=== PATIENT | female | born 1980 | race Caucasian/White ===

== ENCOUNTER 2018-11-19 05:58 | Inpatient (IN) | payer OTHER ==
[2018-11-17 14:41] VITALS: BMI 40.7
[2018-11-19] MEDS ORDERED: LACTATED RINGERS 1,000 ML IV SCH ×2 (06:30→09:30)
[2018-11-19] MEDS ORDERED: CITRIC ACID-SODIUM CITRATE 15 ML CUP PO ONE (06:30)
[2018-11-19 06:54] LABS: Basophils % (A) 0 %; Eosinophils # (A) 0.1 k/uL (0-0.7); Eosinophils % (A) 1 %; HGB 12.5 gm/dL (11.4-16.0); Lymphocytes # (A) 1.5 k/uL (1.0-4.8); Lymphocytes % (A) 17 %; MCH 31.6 pg (25.0-35.0); MCHC 34.7 g/dL (31.0-37.0); MCV 90.8 fL (80.0-100.0); Mean Platelet Volume 7.1; Monocytes # (A) 0.5 k/uL (0-1.0); Monocytes % (A) 6 %; Neutrophils # (A) 6.8 k/uL (1.3-7.7); Neutrophils % (A) 74 %; Platelet Count 180 k/uL (150-450); RBC 3.96 m/uL (3.80-5.40); RDW 13.1 % (11.5-15.5); WBC 9.2 k/uL (3.8-10.6)
[2018-11-19] MEDS ORDERED: KETOROLAC 30 MG/ML 1 ML VIAL ONE (08:05)
[2018-11-19] MEDS ORDERED: MIDAZOLAM 2 MG/2 ML VIAL ONE (08:05)
[2018-11-19] MEDS ORDERED: ePHEDrine SULFATE/0.9% NACL/PF 50 MG/5 ML SYRINGE IV ONE (08:05)
[2018-11-19] MEDS ORDERED: MORPHINE SULFATE (PF) 0.3 MG/0.3 ML SYR ONE (08:05)
[2018-11-19] MEDS ORDERED: ONDANSETRON 4 MG/2 ML VIAL ONE (08:05)
[2018-11-19] MEDS ORDERED: NALBUPHINE 10 MG/ML (1 ML AMP) ONE (08:05)
[2018-11-19] MEDS ORDERED: OXYTOCIN 10 UNIT/ML 1 ML VIAL ONE (08:05)
[2018-11-19] MEDS ORDERED: HYDROcodone/APAP 7.5-325MG 1 EACH TAB PO PRN (09:17)
[2018-11-19] MEDS ORDERED: ONDANSETRON 4 MG/2 ML VIAL IVP PRN (09:17)
[2018-11-19] MEDS ORDERED: METOCLOPRAMIDE 5 MG/ML 2 ML VIAL IVP PRN (09:17)
[2018-11-19] MEDS ORDERED: diphenhydrAMINE 50 MG/ML 1 ML VIAL IVP PRN ×2 (09:17)
[2018-11-19] MEDS ORDERED: SIMETHICONE 80 MG CHEWABLE PO PRN (09:17)
[2018-11-19] MEDS ORDERED: ACETAMINOPHEN TAB 325 MG TAB PO PRN (09:17)
[2018-11-19] MEDS ORDERED: diphenhydrAMINE 25 MG CAP PO PRN (09:17)
[2018-11-19] MEDS ORDERED: diphenhydrAMINE 50 MG CAP PO PRN (09:17)
[2018-11-19] MEDS ORDERED: LANOLIN CREAM 5 GM TUBE TOPICAL PRN (09:17)
[2018-11-19] MEDS ORDERED: ZOLPIDEM 5 MG TAB PO PRN (09:17)
[2018-11-19] MEDS ORDERED: NALOXONE 0.4 MG/ML 1 ML VIAL IV PRN ×2 (09:17→09:41)
--- NOTE | 2018-11-19 09:23 | P.HPOB ---
History of Present Illness H&P Date: 11/19/18 Chief Complaint: 39+ weeks, previous section, requesting repeat with tubal ligation The patient is a 38-year-old 2 para 1001 admitted at 39+ weeks as established by enedina Crawfordter. And confirmed a 9 week ultrasound. She is admitted for repeat low transverse section with intraoperative bilateral tubal occlusion with Filshie clips. She has signed consent to these effects in the office and understands all the risks and complications. Her has otherwise been essentially uncomplicated. She does fall into the category of advanced maternal age and declined trisomy testing. She also is known to be Rh- and received RhoGAM at 28 weeks. Group B strep status is negative. She is also known to have fairly significant fibroids in the fundal portion of the uterus. Obstetrical history: 2 para 1001 with 1 previous term section without compilations. Current statistics are listed in history present illness. EDC of 11/25/2018 was established by last menstrual period and confirmed by 9 week ultrasound. Laboratory workup demonstrates a blood type of B- with a negative antibody screen. Rubella status is immune. The remainder of the laboratory workup was within normal limits. Early Glucola was within normal limits while second trimester Glucola was elevated and followed by a normal three-hour glucose tolerance test. Group B strep status is negative. Gynecologic history: Unremarkable with no history of any infections to include STDs. Past Medical History Past Medical History: No Reported History Additional Past Medical History / Comment(s): Patient is approximately 8-9 cm uterine fibroid that appears to be pedunculated. History of Any Multi-Drug Resistant Organisms: None Reported Past Surgical History: Section, Orthopedic Surgery Additional Past Surgical History / Comment(s): arthroscopic left knee Past Anesthesia/Blood Transfusion Reactions: No Reported Reaction Past Psychological History: No Psychological Hx Reported Smoking Status: Never smoker Past Alcohol Use History: None Reported Past Drug Use History: None Reported - Past Family History Mother Family Medical History: No Reported History Medications and Allergies Home Medications Medication Instructions Recorded Confirmed Type Pnv,Calcium 72/Iron/Folic Acid 1 tab PO DAILY 12/25/14 11/19/18 History [ Plus Tablet] Allergies Allergy/AdvReac Type Severity Reaction Status Date / Time bandaid AdvReac red itchy Uncoded 11/19/18 06:28 skin Exam Vital Signs Temp Pulse Resp BP 11/19/18 06:26 96.4 F L 80 16 144/90 In general, this is a well-developed, well-nourished mildly obese white female in no acute distress. Her heart has a regular rhythm and rate without murmur. Her lungs are clear to auscultation bilaterally in all lee. Her abdomen is gravid, nondistended, has normal active bowel sounds, is soft, nontender, and without any palpable masses aside from uterine fundus. Her extremities are without any cyanosis, clubbing, or significant edema and are nontender to palpation bilaterally. Digital cervical examination is deferred. Results Result Diagrams: 11/19/18 06:37 Assessment and Plan (1) Family planning Current Visit: Yes Status: Acute Code(s): Z30.09 - ENCOUNTER FOR OT GENERAL CNSL AND ADVICE ON CONTRACEPTION SNOMED Code(s): 698180016 (2) Previous section Current Visit: Yes Status: Acute Code(s): Z98.891 - HISTORY OF UTERINE SCAR FROM PREVIOUS SURGERY SNOMED Code(s): 773691998 (3) Term Current Visit: Yes Status: Acute Code(s): Z34.90 - ENCNTR FOR SUPRVSN OF NORMAL , UNSP, UNSP TRIMESTER SNOMED Code(s): 85357045 Plan: The patient is admitted for repeat low transverse section with intraoperative bilateral tubal occlusion. She has signed consent to that effect in the office. She understands the risks and, occasions as well as the permanent nature of tubal ligation as well as the failure rate and risk for ectopic .
[2018-11-19] MEDS ORDERED: OXYTOCIN 20 UNITS/1000 ML NS 1,000 ML IV SCH (09:30)
--- NOTE | 2018-11-19 09:30 | P.OP ---
Date of Procedure: 11/19/18 Preoperative Diagnosis: #1. 39+ weeks, previous section #2. Undesired fertility #3. Fibroid uterus Postoperative Diagnosis: Same Procedure(s) Performed: #1. Repeat low transverse section #2. Bilateral intraoperative tubal occlusion with Filshie clips #3. Adhesiolysis Anesthesia: spinal Surgeon: Sawyer Jacques Personal Financial Representative #1: Tina Lees Estimated Blood Loss (ml): 600 IV fluids (ml): 1,800 Urine output (ml): 100 Pathology: none sent Condition: stable Disposition: floor Operative Findings: The patient was taken the operating room where she was delivered of a viable 7 lbs. 10 oz. baby boy with Apgars of 9 at 1 minute and 10 at 5 minutes delivered in the occiput anterior position. The placenta was delivered manually and intact, grossly normal with a grossly normal three-vessel cord. The uterus was noted to have multiple pedunculated and subserosal fibroids and uterine fundus and one in the low posterior fundal area, all at least 4 cm in size. There was also adhesive disease from the omentum to one of the fibroids on the fundus as well as into the adnexal region which was taken down intraoperatively. Otherwise, the tubes and ovaries were normal to inspection. There was a moderate amount of scarring in the midline at the level of the fascia and muscles. Description of Procedure: The patient was prepped and draped in usual fashion after spinal anesthesia was administered by the anesthesiologist. A Pfannenstiel incision was made through pre-existing scar and extended into the abdominal cavity with only minimal difficulty at the level of the fascia and muscles were there was moderate amount of scarring. The bladder peritoneum was elevated, incised, and reflected distally. A 270 incision was made in the transverse plane of the lower uterine segment to enter the uterus at which time light meconium-stained fluid was noted. Incision was extended in both directions using the bandage scissors. The head was delivered through the incision where the nose and mouth were thoroughly suctioned. Remainder of the was delivered onto the field where the cord was doubly clamped, cut, and the passed resuscitative measures weight and Apgars as noted above. cord blood was collected for evaluation for the necessity of RhoGAM. A segment of cord was doubly clamped, cut, and set aside should cord gases become necessary the placenta was delivered manually and intact as noted above. The uterus was exteriorized with some difficulty secondary to the bulkiness of the fibroids in the fundus. The margins of the incision were grasped with Talavera clamps after sweeping the interior cavity of any placental or membranous fragments with a laparotomy sponge. The incision was closed with a single running locking stitch of 0 chromic catgut proceeding from margin to margin. Any small points of bleeding were made hemostatic with the Bovie. There was noted to be a fairly dense omental adhesion to one of the pedunculated fibroids on the fundus which was tied with a free tie of 0 chromic catgut and then divided between the 2 free ties with no ongoing bleeding. There was another filmy adhesion which was taken down using the Bovie over the entire left adnexa. The posterior cul-de-sac was suctioned with a guard. After re-confirming that the patient wished tubal occlusion, the bilateral fallopian tubes were occluded with a Filshie clip approximately 2-3 cm from the cornu across the isthmus where there were firmly affixed. The uterus was replaced within the abdominal cavity. The gutters were swept of any remaining blood, fluid, or clot. Reexamination of the incision was carried out and any small points of bleeding made hemostatic with the Bovie. After hemostasis was assured, the parietal peritoneum was loosely reapproximated and layer of muscles examined and made hemostatic with the Bovie. The fascia was closed with 2 running stitches of 0 Vicryl proceeding from lateral margins to the midpoint. The subcutaneous tissues were irrigated, made hemostatic with the Bovie, and reapproximated with a running stitch of 30 plain catgut. The skin was reapproximated with a running subcuticular stitch of 4-0 Vicryl from margin to margin followed by half-inch Steri-Strips placed with Mastisol. Estimated blood loss for the case was approximate 600 mL. There are no complications. All sponge, instrument, and needle counts were correct. The patient tolerated the procedure well and proceeded to the recovery room in stable condition. Both mother and are resting comfortably in recovery.
[2018-11-19] MEDS ORDERED: KETOROLAC 30 MG/ML 1 ML VIAL IVP PRN (09:41)
[2018-11-19] MEDS ORDERED: NALBUPHINE 10 MG/ML (1 ML AMP) IV PRN (09:41)
[2018-11-19] MEDS ORDERED: MORPHINE SULFATE 2 MG/ML SYRINGE IVP PRN (09:41)
[2018-11-19] MEDS ORDERED: Rhogam IMMUNE GLOBULIN 1,500 UNIT/1 ML IM ONE (14:37)
[2018-11-19] MEDS: KETOROLAC 30 MG/ML 1 ML VIAL IVP PRN ×2 (16:00→23:13)
[2018-11-19] MEDS: SENNOSIDES-DOCUSATE SODIUM 1 EACH TAB PO SCH (23:15)
[2018-11-20] MEDS: HYDROcodone/APAP 5-325MG 1 EACH TAB PO PRN ×3 (05:45→20:59)
[2018-11-20 07:03] LABS: Basophils % (A) 0 %; Eosinophils # (A) 0.1 k/uL (0-0.7); Eosinophils % (A) 1 %; HGB 10.2 gm/dL (11.4-16.0); Lymphocytes # (A) 1.1 k/uL (1.0-4.8); Lymphocytes % (A) 8 %; MCH 30.7 pg (25.0-35.0); Mean Platelet Volume 8.4; Monocytes # (A) 0.6 k/uL (0-1.0); Monocytes % (A) 5 %; Neutrophils # (A) 11.1 k/uL (1.3-7.7); Neutrophils % (A) 85 %; Platelet Count 168 k/uL (150-450); RBC 3.33 m/uL (3.80-5.40); RDW 13.5 % (11.5-15.5); WBC 13.1 k/uL (3.8-10.6)
--- NOTE | 2018-11-20 07:18 | P.PN ---
Progress Note - Text Progress Note Date: 11/20/18 Patient without complaints. Ambulating without weakness or paresthesia. Pain and pruritis treated. Headache subsided after [place]. No urinary retention. VSS Spinal site clean and dry A/P POD #1 s/p with spinal duramorph - doing well
[2018-11-20] MEDS: SENNOSIDES-DOCUSATE SODIUM 1 EACH TAB PO SCH (08:14)
[2018-11-20] MEDS: KETOROLAC 30 MG/ML 1 ML VIAL IVP PRN (09:13)
--- NOTE | 2018-11-20 10:50 | P.PNOBGPC ---
Subjective - Subjective Patient reports: Reports appetite normal, Reports voiding normally, Reports pain well controlled, Reports ambulating normally : doing well, nursing well Objective - Vital Signs Latest vital signs: Vital Signs Temp Pulse Resp BP Pulse Ox 11/20/18 10:00 16 11/20/18 08:00 98.2 F 93 16 104/86 11/20/18 06:00 16 98 11/20/18 04:00 98.6 F 82 16 128/78 11/20/18 02:00 16 100 11/20/18 00:00 98.2 F 84 16 134/80 11/19/18 22:00 16 98 11/19/18 20:00 98.3 F 81 16 142/83 100 11/19/18 17:48 16 11/19/18 17:47 98 11/19/18 16:30 98.1 F 89 16 120/74 11/19/18 14:00 16 98 11/19/18 12:41 16 11/19/18 12:00 98.1 F 76 16 123/60 11/19/18 11:04 97.1 F L 75 16 133/68 Intake and Output 11/19/18 11/20/18 11/20/18 22:59 06:59 14:59 Output Total 1950 200 Balance -1950 -200 Output: Urine 1950 200 Uretheral ([place]) 650 Other: # Voids 400 1 - Exam Extremities: Present: normal, edema (Trace to 1+ bilateral lower extremity edema to mid vences.) Abdomen: Present: normal appearance, soft. Absent: distention, tenderness Incision: Present: normal, dry, intact Uterus: Present: normal, firm (The uterine fundus is tonic and nontender below the umbilicus.) - Labs Labs: Abnormal Lab Results - Last 24 Hours (Table) 11/20/18 Range/Units 06:39 WBC 13.1 H (3.8-10.6) k/uL RBC 3.33 L (3.80-5.40) m/uL Hgb 10.2 L (11.4-16.0) gm/dL Hct 31.0 L (34.0-46.0) % Neutrophils # 11.1 H (1.3-7.7) k/uL Assessment and Plan (1) Family planning Current Visit: Yes Status: Acute Code(s): Z30.09 - ENCOUNTER FOR OTH GENERAL CNSL AND ADVICE ON CONTRACEPTION SNOMED Code(s): 501060058 (2) Previous section Current Visit: Yes Status: Acute Code(s): Z98.891 - HISTORY OF UTERINE SCAR FROM PREVIOUS SURGERY SNOMED Code(s): 104589108 (3) Term Current Visit: Yes Status: Acute Code(s): Z34.90 - ENCNTR FOR SUPRVSN OF NORMAL , UNSP, UNSP TRIMESTER SNOMED Code(s): 45737831 (4) S/P section Current Visit: Yes Status: Acute Code(s): Z98.891 - HISTORY OF UTERINE SCAR FROM PREVIOUS SURGERY SNOMED Code(s): 192553132 Plan: Continue routine postoperative and care. Possible discharge home tomorrow though the patient may opted to stay an extra day for nursing help.
[2018-11-20] MEDS: IBUPROFEN 600 MG TAB PO PRN (18:30)
[2018-11-21] MEDS: IBUPROFEN 600 MG TAB PO PRN ×4 (00:27→19:08)
[2018-11-21] MEDS: SENNOSIDES-DOCUSATE SODIUM 1 EACH TAB PO SCH ×3 (01:28→22:36)
[2018-11-21] MEDS: HYDROcodone/APAP 5-325MG 1 EACH TAB PO PRN ×4 (04:17→22:36)
--- NOTE | 2018-11-21 11:02 | P.PNOBGPC ---
Subjective - Subjective Patient reports: Reports appetite normal, Reports voiding normally, Reports pain well controlled, Reports ambulating normally : doing well, nursing well Objective - Vital Signs Latest vital signs: Vital Signs Temp Pulse Resp BP Pulse Ox 11/21/18 08:00 98.0 F 78 16 153/92 11/21/18 00:00 98.1 F 89 16 139/73 11/20/18 22:00 16 100 11/20/18 20:00 99.1 F 96 16 148/90 100 11/20/18 16:00 99.0 F 99 16 120/80 98 11/20/18 12:00 16 Intake and Output 11/20/18 11/21/18 11/21/18 22:59 06:59 14:59 Other: # Voids 1 2 1 # Bowel Movements 1 - Exam Extremities: Present: normal Abdomen: Present: normal appearance, soft. Absent: distention, tenderness Incision: Present: normal, dry, intact Uterus: Present: normal, firm (The uterine fundus is tonic and minimally tender around the umbilicus.) Assessment and Plan (1) Family planning Current Visit: Yes Status: Acute Code(s): Z30.09 - ENCOUNTER FOR OT GENERAL CNSL AND ADVICE ON CONTRACEPTION SNOMED Code(s): 277449570 (2) Previous section Current Visit: Yes Status: Acute Code(s): Z98.891 - HISTORY OF UTERINE SCAR FROM PREVIOUS SURGERY SNOMED Code(s): 149255325 (3) Term Current Visit: Yes Status: Acute Code(s): Z34.90 - ENCNTR FOR SUPRVSN OF NORMAL , UNSP, UNSP TRIMESTER SNOMED Code(s): 96608139 (4) S/P section Current Visit: Yes Status: Acute Code(s): Z98.891 - HISTORY OF UTERINE SCAR FROM PREVIOUS SURGERY SNOMED Code(s): 729642662 Plan: Continue routine postoperative and care. The patient has elected to stay in the hospital 1 more day for additional assistance with nursing. I would anticipate discharge home tomorrow pending no complications. I continued to encourage her to amply in the halls routinely.
[2018-11-22] MEDS: IBUPROFEN 600 MG TAB PO PRN ×2 (01:21→07:50)
[2018-11-22] MEDS: HYDROcodone/APAP 5-325MG 1 EACH TAB PO PRN ×2 (04:40→11:00)
[2018-11-22] MEDS: SENNOSIDES-DOCUSATE SODIUM 1 EACH TAB PO SCH (07:50)
[2018-11-22 08:04] VITALS: BP 140/84; PULSE 85; RESP 17; TEMP 98
--- NOTE | 2018-11-22 09:25 | P.DS ---
Providers Date of admission: 11/19/18 05:58 Expected date of discharge: 11/22/18 Attending physician: Sawyer Jacques Primary care physician: Eliu Gomez - Discharge Diagnosis(es) (1) Family planning Current Visit: Yes Status: Acute (2) Previous section Current Visit: Yes Status: Acute (3) Term Current Visit: Yes Status: Acute (4) S/P section Current Visit: Yes Status: Acute Hospital Course: The patient is a 38-year-old 2 para 1001 admitted at 39+ weeks by good dating parameters. She is admitted for repeat low transverse section with intraoperative bilateral tubal occlusion with Filshie clips. Her was uncomplicated. She did fall into the category of advanced maternal age and declined testing. She also is Rh- and received RhoGAM at 28 weeks. Group B strep status is negative. She has known fundal fibroids as well. She was taken the operating room where she was delivered of a viable 7 lbs. 10 oz. baby boy with Apgars of 9 at 1 minute and 10 at 5 minutes. She was noted to have fairly significant fibroids particularly on the fundus of the uterus which were primarily sessile and subserosal in nature. Her postoperative course was entirely unremarkable with vital signs remaining stable and her temperature was afebrile throughout. She was deemed stable for discharge on day #3 having opted to remain in the hospital for for assistance from the nurses. She was discharged home to follow-up in the office in 2 weeks for an incision check and 6 weeks routinely. Discharge instructions included calling for any significantly increased bleeding or foul-smelling lochia, significantly increased fever abdominal pain, perineal complaints, breast complaints, incisional complaints, or anything else that concerned her. She was additionally instructed nothing in the vagina for at least 6 weeks time to include intercourse and to abstain from any heavy lifting over the same period of time. She is lastly instructed to do no driving until off of all pain medications or 2 weeks' time, whichever came first. She understood all of her instructions and agrees to follow up as noted above. Discharge medications included continued vitamins as she has opted to breast-feed as well as [id number] analgesic pain medications as needed. She was provided with prescription for [place] 5/325 mg, 1-2 by mouth every 6 hours when necessary pain, #20 dispensed with no refills. Maternal blood type is B- and cord blood was sent for evaluation for the necessity of RhoGAM prior to discharge. Rubella status is immune. Discharge hemoglobin and hematocrit were 10.2 and 31.0 respectively. Procedures: #1. Repeat low transverse section #2. Bilateral intraoperative tubal occlusion with Filshie clips Patient Condition at Discharge: Good Plan - Discharge Summary Discharge Rx Participant: Yes New Discharge Prescriptions: No Action Pnv,Calcium 72/Iron/Folic Acid [ Plus Tablet] 1 tab PO DAILY Discharge Medication List Pnv,Calcium 72/Iron/Folic Acid [ Plus Tablet] 1 tab PO DAILY 12/25/14 [History] Follow up Appointment(s)/Referral(s): Sawyer Jacques MD [STAFF PHYSICIAN] - 2 Weeks Discharge Disposition: HOME SELF-CARE
== END 2018-11-22 11:40 | disposition home or self-care (01) | DRG 785 ==
LOC: 4FBP 05:58
PROVIDERS: ADMIT Obstetrics & Gynecology; ATTEND Obstetrics & Gynecology
PROC: 0UL70CZ Occlusion of Bilateral Fallopian Tubes with Extraluminal Device, Open Approach (ICD-10-PCS; 2018-11-19)
PROC: 3E0234Z Introduction of Serum, Toxoid and Vaccine into Muscle, Percutaneous Approach (ICD-10-PCS; 2018-11-19)
PROC: 10D00Z1 Extraction of Products of Conception, Low, Open Approach (ICD-10-PCS; principal; 2018-11-19 08:00)
DX: O34.211 Maternal care for low transverse scar from previous cesarean delivery (principal); E66.9 Obesity, unspecified; O99.214 Obesity complicating childbirth; D25.2 Subserosal leiomyoma of uterus; Z37.0 Single live birth; O34.13 Maternal care for benign tumor of corpus uteri, third trimester; O26.893 Other specified pregnancy related conditions, third trimester; Z67.21 Type B blood, Rh negative; O99.62 Diseases of the digestive system complicating childbirth; K66.0 Peritoneal adhesions (postprocedural) (postinfection); N85.8 Other specified noninflammatory disorders of uterus; Z3A.39 39 weeks gestation of pregnancy; Z30.2 Encounter for sterilization; L29.9 Pruritus, unspecified; Z79.899 Other long term (current) drug therapy; Z91.048 Other nonmedicinal substance allergy status
CPT/HCPCS: 85025; 85461; 86850; 86900; 86901

== ENCOUNTER → 2020-03-23 | Outpatient (CLI) | payer BC ==
--- NOTE | 2020-03-27 13:41 | MM ---
Reason for exam: screening (asymptomatic). Baseline mammogram. History: Patient had first child at age 32. Family history of breast cancer in paternal aunt at age 50 and breast cancer in paternal cousin at age 30. Took hormonal contraceptives for 2 months. Physical Findings: Nurse did not find any significant physical abnormalities on exam. MG 3D Screening Mammo W/Cad Bilateral CC and MLO view(s) were taken. The breast tissue is heterogeneously dense. This may lower the sensitivity of mammography. Focal asymmetry upper outer left breast. These results were verbally communicated with the patient and result sheet given to the patient on 03/23/20. ASSESSMENT: Incomplete: need additional imaging evaluation, BI-RAD 0 RECOMMENDATION: Special view mammogram of the left breast.
--- NOTE | 2020-03-27 13:42 | MM ---
Reason for exam: additional evaluation requested from abnormal screening. History: Patient had first child at age 32. Family history of breast cancer in paternal aunt at age 50 and breast cancer in paternal cousin at age 30. Took hormonal contraceptives for 2 months. Physical Findings: Breast exam preformed at baseline screening. MG 3D Work Up W/Cad LT Spot compression CC, spot compression MLO, and LM view(s) were taken of the left breast. The breast tissue is heterogeneously dense. This may lower the sensitivity of mammography. Left retroareolar density is improved with spot images. 6 month follow up recommended. These results were verbally communicated with the patient and result sheet given to the patient on 03/23/20. ASSESSMENT: Probably benign, BI-RAD 3 RECOMMENDATION: Follow-up diagnostic mammogram of the left breast in 6 months.
== END | disposition home or self-care (01) ==
LOC: RADMAMWWP 13:27
PROVIDERS: ATTEND Family Medicine
DX: Z12.31 Encounter for screening mammogram for malignant neoplasm of breast (principal); Z80.3 Family history of malignant neoplasm of breast; R92.8 Other abnormal and inconclusive findings on diagnostic imaging of breast
CPT/HCPCS: 77061; 77063; 77065; 77067

== ENCOUNTER → 2021-07-22 | Outpatient (CLI) | payer BC ==
--- NOTE | 2021-07-23 20:00 | MM ---
Reason for Exam: Screening (asymptomatic). Last mammogram was performed 1 year(s) and 4 month(s) ago. Patient History: Menarche at age 15. First Full-Term at age 32. Late child-bearing (after 30). Hormonal Contraceptives for 2 months. Paternal cousin had breast cancer, age 30. Paternal aunt had breast cancer, age 50. Last menstrual period: 07/22/2021 Risk Values: Suzie 5 year model risk: 0.7%. NCI Lifetime model risk: 12.5%. Prior Study Comparison: 03/23/2020 Bilateral Screening Mammogram, [facility]. 03/23/2020 Left Diagnostic Mammogram, [facility]. Tissue Density: There are scattered fibroglandular densities. Findings: Analyzed By CAD. There is no suspicious group of microcalcifications or new suspicious mass in either breast. Overall Assessment: Negative, BI-RAD 1 Management: Screening Mammogram of both breasts in 1 year. 1. A clinical breast exam by your physician is recommended on an annual basis and results should be correlated with mammographic findings. 2. Patient should continue monthly self breast exams. 3. This exam should not preclude additional follow-up of suspicious palpable abnormalities. Electronically signed and approved by: Marycruz Che M.D. Radiologist
== END | disposition home or self-care (01) ==
LOC: RADMAMWWP 07:23
PROVIDERS: ATTEND Family Medicine
DX: Z12.31 Encounter for screening mammogram for malignant neoplasm of breast (principal)
CPT/HCPCS: 77067

== ENCOUNTER 2023-07-23 06:07 | Day surgery (SDC) | payer BC ==
[2023-07-20 15:55] VITALS: BMI 33.6
[2023-07-23] MEDS: LACTATED RINGERS 1,000 ML IV SCH (07:05)
[2023-07-23] MEDS: IV FLUID CONTINUATION 1,000 ML IV ONE ×2 (07:05→08:37)
[2023-07-23] MEDS: DEXAMETHASONE SOD PHOSPHATE 4 MG/ML 1 ML VIAL IV ONE (07:08)
[2023-07-23] MEDS: FAMOTIDINE 20 MG/2 ML VIAL IV PRN (07:09)
[2023-07-23] MEDS: ONDANSETRON 4 MG/2 ML VIAL IVP ONE (07:09)
[2023-07-23] MEDS ORDERED: KETOROLAC 15 MG/ML 1 ML VIAL ONE (07:30)
[2023-07-23] MEDS ORDERED: PROPOFOL 10 MG/ML 20 ML VIAL IV ONE (07:30)
[2023-07-23] MEDS: OXYMETAZOLINE 0.05% NASL SPRAY 1 SPRAY BOTTLE EA NOSTRIL ONE (07:30)
[2023-07-23] MEDS: OFLOXACIN 0.3% OPHTH DROPS 5 ML BOTTLE BOTH EARS ONE (07:30)
[2023-07-23] MEDS ORDERED: fentaNYL (PF) 50 MCG/ML 2 ML AMP ONE (07:30)
[2023-07-23] MEDS ORDERED: MIDAZOLAM 2 MG/2 ML VIAL ONE (07:30)
[2023-07-23 08:21] VITALS: TEMP 97.1
--- NOTE | 2023-07-23 08:35 | P.OP ---
Date of Procedure: 07/23/23 Preoperative Diagnosis: Eustachian tube obstruction bilateral intrinsic Chronic serous otitis media bilateral Conductive hearing loss, bilateral Postoperative Diagnosis: Same Procedure(s) Performed: Bilateral direct microscopic tympanostomy and tube placement utilizing ultrasil tubes Bilateral endoscopic balloon eustachian tuboplasty Anesthesia: GETA Surgeon: Mark Hui Pathology: none sent Condition: stable Disposition: PACU Indications for Procedure: Patient has had problems with chronic otitis media with effusion and has had persistent eustachian tube dysfunction in spite of appropriate maximal medical therapy. Tube placement and eustachian tube dilatation was recommended. All ri sks, benefits and alternative therapies were discussed in detail. Consent was obtained and all questions were answered. Operative Findings: Patient had bilateral middle ear retraction there was a retraction pocket on the right side posteriorly CT scan has been recommended. Eustachian tube orifices were edematous Description of Procedure: Patient was taken to the operative room placed in the supine position. A general inhalation anesthetic was administered to the patient by mask and subsequently had an LMA inserted. Both ears were visualized with a high-powered Zeiss microscope and tympanostomy incisions were made bilaterally ultrasil tubes were placed and fluid was suctioned there was retraction pocket on the right side and a CAT scan would be recommended. We then entered the nose with a 0 degree Samuel eva scope we identified both eustachian tube orifices and through standard insufflation technique we did balloon insufflation of both eustachian tube. The patient tolerated this well all instrumentation was removed and the patient was taken the postanesthesia recovery in excellent condition.
[2023-07-23] MEDS: HYDROmorphone 0.5 MG/0.5 ML SYRINGE IVP PRN (08:44)
[2023-07-23 08:52] VITALS: RESP 16
[2023-07-23 09:46] VITALS: BP 115/59; PULSE 50
== END 2023-07-23 09:59 | disposition home or self-care (01) ==
LOC: OR 06:07
PROVIDERS: ATTEND Otolaryngology
DX: H68.123 Intrinsic cartilagenous obstruction of Eustachian tube, bilateral (principal); H65.23 Chronic serous otitis media, bilateral; H90.0 Conductive hearing loss, bilateral; I10 Essential (primary) hypertension; Z79.899 Other long term (current) drug therapy; Z79.51 Long term (current) use of inhaled steroids
CPT/HCPCS: 69436; 69706; J1100; J2405; J3490; J1170; 81025

== ENCOUNTER → 2023-07-31 | Outpatient (CLI) | payer BC ==
--- NOTE | 2023-08-06 08:18 | MM ---
Reason for Exam: Screening (asymptomatic). Last mammogram was performed 2 year(s) and 0 month(s) ago. Patient History: Menarche at age 15. First Full-Term at age 32. Late child-bearing (after 30). Hormonal Contraceptives for 2 months. Paternal cousin had breast cancer, age 30. Paternal aunt had breast cancer, age 50. Last menstrual period: 07/11/2023 Risk Values: Suzie 5 year model risk: 0.8%. NCI Lifetime model risk: 12.2%. Prior Study Comparison: 03/23/2020 Bilateral Screening Mammogram, [facility]. 03/23/2020 Left Diagnostic Mammogram, [facility]. 07/22/2021 Bilateral MG screening mammo w CAD, [facility]. Tissue Density: There are scattered areas of fibroglandular density. Findings: There is no suspicious group of microcalcifications or new suspicious mass in either breast. Overall Assessment: Negative, BI-RAD 1 Management: Screening Mammogram of both breasts in 1 year. . Patient should continue monthly self-breast exams. A clinical breast exam by your physician is recommended on an annual basis. This exam should not preclude additional follow-up of suspicious palpable abnormalities. Note on Suzie scores and lifetime risk: 1. A Suzie score greater than 3% is considered moderate risk. If this is the case, consider specialist referral to assess eligibility for a risk reducing agent. 2. If overall lifetime risk for the development of breast cancer is 20% or higher, the patient may qualify for future screening with alternating mammogram and breast MRI. Electronically signed and approved by: Ivan Dozier M.D. Radiologis
== END | disposition home or self-care (01) ==
LOC: RADMAMWWP 07:06
PROVIDERS: ATTEND Family Medicine
DX: Z12.31 Encounter for screening mammogram for malignant neoplasm of breast (principal); Z80.3 Family history of malignant neoplasm of breast
CPT/HCPCS: 77063; 77067

== ENCOUNTER → 2023-08-07 | Outpatient (CLI) | payer BC ==
--- NOTE | 2023-08-12 14:34 | CT ---
EXAMINATION TYPE: CT iac wo con DATE OF EXAM: 08/07/2023 COMPARISON: HISTORY: loss of hearing/infection CT DLP: 150mGycm Automated exposure control for dose reduction was used. FINDINGS: The external auditory canals are patent bilaterally. Mastoid air cells show no evidence of abnormal opacification bilaterally. The middle ear ossicles are symmetric and unremarkable. There is no evidence of suspicious surrounding soft tissue density to suggest cholesteatoma. The scutum is preserved bilaterally. The cochlea and the semicircular canals are symmetric and unremarkable. Ves tibular aqueduct and internal carotid canal appear unremarkable. Temporomandibular joints are mainta ined bilaterally. IMPRESSION: No significant abnormality seen to account for patient's symptoms.
== END | disposition home or self-care (01) ==
LOC: RADCTMAIN 15:03
PROVIDERS: ATTEND Otolaryngology
DX: H74.8X2 Other specified disorders of left middle ear and mastoid (principal)
CPT/HCPCS: 70480